=== PATIENT | male | born 1945 | race Caucasian/White ===

== ENCOUNTER 2017-11-05 01:04 | Emergency (ER) | payer MEDICARE ==
[~2017-11-05] VITALS: Ht 175.3 cm; Wt 88.2 kg
[2017-11-05 01:10] VITALS: BP 100/48; PULSE 74; RESP 16; TEMP 97.6; O2SAT 97
[2017-11-05 01:20] VITALS: BP_SYST 103; BP_SYST 106; BP_SYST 99; BP_DIAS 53; BP_DIAS 55; BP_DIAS 61; RESP 16
[2017-11-05] MEDS ORDERED: SODIUM CHLOR 0.9% 1000 ML INJ 1,000 ML IV SCH (01:30)
--- NOTE | 2017-11-05 01:30 | PD ---
HPI Chief Complaint: Syncope/Near-Syncope Time Seen by Provider: 01:23 Travel History International Travel<30 days: No Contact w/Intl Traveler<30days: No Traveled to known affect area: No History of Present Illness HPI The patient is a 71-year-old male that went to walk to the bathroom and passed out. He passed out for about 2 minutes. He did not hurt himself when he passed out. EMS came and took her blood pressure 100/50 supine and when he stood up went to 72/50. EMS gave the patient 1000 L of saline and the patient felt better. The patient is on tizanidine and is on valsartan/ hydrochlorothiazide. He has lost some weight lately. He states he does not believe he is dehydrated. He denies any chest discomfort, palpitations, nausea , vomiting or diarrhea. PFSH Past Medical History Cancer: Yes (bladder) High Cholesterol: Yes Diminished Hearing: Yes (hearing aid) Hypertension: Yes Immunizations Current: Yes Tetanus Vaccination: > 5 Years Influenza Vaccination: No Past Surgical History Appendectomy: Yes Genitourinary Surgery: Yes (bladder) Social History Alcohol Use: Yes (rare) Tobacco Use: No (quit 20 years ago) Substance Use: No Allergies-Medications (Allergen,Severity, Reaction): Coded Allergies: No Known Allergies (Unverified , 11/05/17) Reported Meds & Prescriptions Reported Meds & Active Scripts Active Reported Atorvastatin (Atorvastatin Calcium) 40 Mg Tab 40 Mg PO HS Flexeril (Cyclobenzaprine HCl) 10 Mg Tab 10 Mg PO TID Meloxicam 15 Mg Tab 15 Mg PO DAILY Hydrocodone-Acetaminophen 5-325 mg Tab 1 Tab PO Q6H PRN Valsartan-Hydrochlorothiazide 160-25 Mg Tab 1 Tab PO DAILY Tizanidine (Tizanidine HCl) 4 Mg Cap 4 Mg PO TID Review of Systems Except as stated in HPI: all other systems reviewed are Neg Physical Exam Narrative GENERAL: The patient is alert, oriented 3 in no apparent distress. His vital signs show blood pressure 100/48 but otherwise are normal. SKIN: Focused skin assessment warm/dry. HEAD: Atraumatic. Normocephalic. EYES: Pupils equal and round. No scleral icterus. No injection or drainage. ENT: No nasal bleeding or discharge. Mucous membranes pink and moist. NECK: Trachea midline. No JVD. CARDIOVASCULAR: Regular rate and rhythm. No murmur appreciated. RESPIRATORY: No accessory muscle use. Clear to auscultation. Breath sounds equal bilaterally. GASTROINTESTINAL: Abdomen soft, non-tender, nondistended. Hepatic and splenic margins not palpable. MUSCULOSKELETAL: No obvious deformities. No clubbing. No cyanosis. No edema. NEUROLOGICAL: Awake and alert. No obvious cranial nerve deficits. Motor grossly within normal limits. Normal speech. PSYCHIATRIC: Appropriate mood and affect; insight and judgment normal. Data Data Last Documented VS Vital Signs Date Time Temp Pulse Resp B/P (MAP) Pulse Ox O2 Delivery O2 Flow Rate FiO2 11/05/17 01:55 66 16 87/48 (61) 97 Room Air 11/05/17 01:10 97.6 Orders Orders Complete Blood Count With Diff (11/05/17 01:23) Comprehensive Metabolic Panel (11/05/17 01:23) Troponin I (11/05/17 01:23) Urinalysis - C+S If Indicated (11/05/17 01:23) Sodium Chlor 0.9% 1000 Ml Inj (Ns 1000 M (11/05/17 01:30) Electrocardiogram (11/05/17 01:30) Labs Laboratory Tests Test 11/05/17 01:27 White Blood Count 6.1 TH/MM3 Red Blood Count 3.87 MIL/MM3 Hemoglobin 12.0 GM/DL Hematocrit 37.0 % Mean Corpuscular Volume 95.7 FL Mean Corpuscular Hemoglobin 31.1 PG Mean Corpuscular Hemoglobin Concent 32.5 % Red Cell Distribution Width 12.9 % Platelet Count 257 TH/MM3 Mean Platelet Volume 8.1 FL Neutrophils (%) (Auto) 47.0 % Lymphocytes (%) (Auto) 42.3 % Monocytes (%) (Auto) 7.9 % Eosinophils (%) (Auto) 2.3 % Basophils (%) (Auto) 0.5 % Neutrophils # (Auto) 2.9 TH/MM3 Lymphocytes # (Auto) 2.6 TH/MM3 Monocytes # (Auto) 0.5 TH/MM3 Eosinophils # (Auto) 0.1 TH/MM3 Basophils # (Auto) 0.0 TH/MM3 CBC Comment DIFF FINAL Differential Comment Blood Urea Nitrogen 21 MG/DL Creatinine 0.95 MG/DL Random Glucose 126 MG/DL Total Protein 6.1 GM/DL Albumin 3.2 GM/DL Calcium Level 7.6 MG/DL Alkaline Phosphatase 81 U/L Aspartate Amino Transf (AST/SGOT) 17 U/L Alanine Aminotransferase (ALT/SGPT) 25 U/L Total Bilirubin 0.4 MG/DL Sodium Level 140 MEQ/L Potassium Level 3.2 MEQ/L Chloride Level 106 MEQ/L Carbon Dioxide Level 25.0 MEQ/L Anion Gap 9 MEQ/L Estimat Glomerular Filtration Rate 78 ML/MIN Troponin I LESS THAN 0.02 NG/ML MDM Medical Decision Making Medical Screen Exam Complete: Yes Emergency Medical Condition: Yes Medical Record Reviewed: Yes Interpretation(s) The CBC shows a hemoglobin of 12 and hematocrit of 37 and normal platelet count and is otherwise normal. The complete metabolic profile shows a potassium of 3.2, BUN 21, GFR of 78, calcium 7.6, total protein 6.1 and albumen 3.2 but is otherwise unremarkable. The troponin I is less than 0.02. Differential Diagnosis Dehydration, electrolyte disorder, medication side effect, hypo-/hyperglycemia- unlikely Narrative Course The patient may have had extremely mild dehydration but medication side effect appears to be the major reason why his pressure is low. After 3 L of fluid, his blood pressure is still low. He is not symptomatic now. His slightly low potassium is likely due to the hydrochlorothiazide component of the blood pressure medication. He is to discontinue the blood pressure medication and increase his liquid intake. He will follow-up with a primary care physician in about 8 days. Diagnosis Primary Impression: Syncope Additional Impressions: Medication side effect Mild dehydration Mauro Maciel MD Nov 05, 2017 01:30
[2017-11-05 01:45] LABS: AUTOMATED NEUTROPHIL # 2.9 TH/MM3 (1.8-7.7); BASOPHIL % 0.5 % (0.0-2.0); EOSINOPHIL # 0.1 TH/MM3 (0-0.4); EOSINOPHIL % 2.3 % (0.0-4.0); LYMPH % 42.3 % (9.0-44.0); LYMPHOCYTE # 2.6 TH/MM3 (1.0-4.8); MEAN CELL VOLUME 95.7 FL (80.0-100.0); MEAN CORPUSCULAR HEMOGLOBIN 31.1 PG (27.0-34.0); MEAN CORPUSCULAR HGB CONC 32.5 % (32.0-36.0); MEAN PLATELET VOLUME 8.1 FL (7.0-11.0); MONO % 7.9 % (0.0-8.0); MONOCYTE # 0.5 TH/MM3 (0-0.9); PLATELET COUNT 257 TH/MM3 (150-450); RED BLOOD COUNT 3.87 MIL/MM3 (4.50-5.90); RED CELL DISTRIBUTION WIDTH 12.9 % (11.6-17.2); WHITE BLOOD COUNT 6.1 TH/MM3 (4.0-11.0)
[2017-11-05] MEDS ORDERED: ATOR40TA16 PO (01:45)
[2017-11-05] MEDS ORDERED: VALS160T6 PO (01:45)
[2017-11-05] MEDS ORDERED: MELO15TA20 PO (01:45)
[2017-11-05] MEDS ORDERED: CYCL10TA PO (01:45)
[2017-11-05] MEDS ORDERED: TIZA4CAP3 PO (01:45)
[2017-11-05] MEDS ORDERED: HYDR-3516 PO (01:45)
[2017-11-05 01:55] VITALS: BP 87/48; PULSE 66; RESP 16; O2SAT 97
[2017-11-05 01:55] LABS: CHLORIDE 106 MEQ/L (98-107); SODIUM (NA) 140 MEQ/L (136-145)
[2017-11-05 01:58] LABS: ALBUMIN 3.2 GM/DL (3.4-5.0); BLOOD UREA NITROGEN 21 MG/DL (7-18); CALCIUM 7.6 MG/DL (8.5-10.1); GLUCOSE,RANDOM 126 MG/DL (74-106)
[2017-11-05 02:01] LABS: ALT (GPT) 25 U/L (12-78); AST (GOT) 17 U/L (15-37)
[2017-11-05 02:02] LABS: CREATININE 0.95 MG/DL (0.60-1.30); GLOMERULAR FILTRATION RATE 78 ML/MIN (>89)
[2017-11-05 02:03] LABS: TOTAL BILIRUBIN ADULT 0.4 MG/DL (0.2-1.0); TOTAL PROTEIN 6.1 GM/DL (6.4-8.2)
[2017-11-05 02:04] LABS: ALKALINE PHOSPHATASE 81 U/L (45-117)
[2017-11-05 02:06] LABS: TROPONIN I LESS THAN 0.02 NG/ML (0.02-0.05)
[2017-11-05 02:28] VITALS: BP 107/52; PULSE 74; RESP 18; O2SAT 98
[2017-11-05] MEDS ORDERED: POTASSIUM CHLORIDE 20 MEQ CONTROLLED RELEASE TAB PO ONE (02:30)
[2017-11-05 02:33] LABS: BILIRUBIN, URINE NEG (NEG); BLOOD, URINE NEG (NEG); GLUCOSE,URINE NEG (NEG); KETONE, URINE TRACE mg/dL (NEG); NITRITE,URINE NEG (NEG); URINE LEUKOCYTE ESTERASE NEG (NEG)
[2017-11-05 02:36] LABS: URINE COLOR YELLOW (YELLW/STRAW)
[2017-11-05 02:37] LABS: RBC, URINE 0-2 /hpf (0-3); SQUAMOUS EPITHELIAL CELL URINE 0-5 /hpf (0-5); WBC, URINE 0-2 /hpf (0-5)
[2017-11-05 03:05] VITALS: BP 120/75; TEMP 98.2
--- NOTE | 2017-11-05 22:01 | EKG ---
Date Performed: 11/05/2017 Time Performed: 01:38:46 PTAGE: 71 years EKG: Sinus rhythm MODERATE INTRAVENTRICULAR CONDUCTION DELAY NONSPECIFIC T-WAVE ABNORMALITY BORDERLINE ECG WARNING: DA TA QUALITY MAY AFFECT INTERPRETATION NO PREVIOUS TRACING DOCTOR: Edgard Mcmahan Interpretating Date/Time 11/05/2017 22:01:00
== END 2017-11-05 03:07 | disposition home or self-care (01) ==
LOC: PHED 01:04
DX: R55 Syncope and collapse (principal); E86.0 Dehydration; E78.00 Pure hypercholesterolemia, unspecified; I10 Essential (primary) hypertension; R94.31 Abnormal electrocardiogram [ECG] [EKG]; Z79.899 Other long term (current) drug therapy
CPT/HCPCS: 80053; 81001; 84484; 85025; 93005; 96360; 99284; J7030